=== PATIENT | male | born 1960 ===

== ENCOUNTER 2023-09-11 02:23 | Outpatient (CLI) | payer BC, SELFPAY ==
[2023-09-11 15:00] LABS: HCT 47.6 % (40.0-50.0); HGB 15.5 g/dL (13.5-17.5); MCH 28.1 pg (27.0-33.0); MCHC 32.6 % (32.0-36.0); MCV 86 fL (80-95); MPV 9.6 fL (8.0-11.0); Platelet Count 278 10^3/uL (130-400); RBC 5.51 10^6/uL (4.36-5.78); RDW 15.8 % (11.8-14.1); RDW-SD 50.2 fL; WBC 10.79 10^3/uL (4.4-10.8)
[2023-09-11 15:44] LABS: Anion Gap 8.2 mmol/L (3-11); BUN 31 mg/dL (7-18); CO2 25.8 mmol/L (21.0-32.0); CREATININE 1.4 mg/dL (0.70-1.30); Calcium 9.4 mg/dL (8.5-10.1); Chloride 103 mmol/L (98-107); Estimated GFR 55.78 (mL/min/1.73m2); Glucose 112 mg/dL (74-106); Potassium 4.5 mmol/L (3.5-5.1); Sodium 137 mmol/L (136-145)
== END 2023-09-11 02:24 | disposition home or self-care (01) ==
LOC: LBO 02:23
PROVIDERS: PCP Nurse Practitioner Family; Visit Provider Student in an Organized Health Care Education/Training Program
DX: M16.12 Unilateral primary osteoarthritis, left hip (principal); Z01.818 Encounter for other preprocedural examination
CPT/HCPCS: 36415; 80048; 85027

== ENCOUNTER 2023-09-11 14:48 | Outpatient (CLI) | payer BC, SELFPAY ==
--- NOTE | 2023-09-11 13:30 | DI.RAD_ITS ---
Exam(s) XR PELVIS AP EXAM: XR PELVIS AP CLINICAL HISTORY: PRE OP L FRANCISCA. TECHNIQUE: 2D digital imaging was performed. Single AP view. COMPARISON: CR XR HIP LEFT 2-3 VIEWS, OPTIONAL PELVIS from 07/12/2022 MR MR PELVIS WO CONTRAST from 09/30/2022 NM NM BONE WHOLE BODY from 10/18/2022 FL GUIDED INJECT/ASPIR LEFT HIP from 10/25/2022 FINDINGS: BONES: No acute fracture is present. There is faint sclerosis surrounding area of lucency in the lef t femoral head. There is no evidence of subchondral collapse. JOINTS: No dislocation present. No joint space narrowing is present. Minimal periarticular spurring. SOFT TISSUE: Calcifications. IMPRESSION: Stable of appearance of the left femoral head with small area of presumed avascular necrosis. No col lapse of the femoral head. DATA REPOSITORY: RADIATION DOSE DELIVERED:
== END 2023-09-11 14:49 | disposition home or self-care (01) ==
LOC: DIORS 14:48
PROVIDERS: PCP Nurse Practitioner Family; Visit Provider Physician Assistant
DX: M87.052 Idiopathic aseptic necrosis of left femur (principal)
CPT/HCPCS: 72170

== ENCOUNTER 2023-09-24 05:53 | Day surgery (SDC) | payer BC, SELFPAY ==
--- NOTE | 2023-09-23 18:48 | W.ANESPRE ---
General Info Date of Service Date Performed: 09/24/23 Height: 6 ft Weight: 110.223 kg Body Mass Index (BMI): 32.9 Surgical Procedure: Operation Date: 09/24/23 07:50 Proposed Procedure Side Surgeon p Hip Total Hip Anterior, ACTIS Left Ronald Morel MD Meds Allergies and Home Medications Allergies Allergy/AdvReac Type Severity Reaction Status Date / Time levofloxacin Allergy Mild rash Verified 09/24/23 06:05 Home Medication ?Medication ?Instructions ?Recorded acetaminophen 325 mg tablet 650 mg PO Q6H PRN 05/28/23 apixaban 5 mg tablet 5 mg PO BID 05/28/23 atorvastatin 10 mg tablet 10 mg PO QHS 05/28/23 cholecalciferol (vitamin D3) 10 10 mcg PO DAILY 05/28/23 mcg (400 unit) capsule empagliflozin 10 mg tablet 10 mg PO DAILY 05/28/23 glipizide 10 mg tablet 10 mg PO DAILY 05/28/23 insulin degludec 200 unit/mL (3 125 unit subcut DAILY 05/28/23 mL) subcutaneous pen (Tresiba FlexTouch U-200 insulin) lisinopril 20 mg tablet 20 mg PO DAILY 05/28/23 metformin 500 mg tablet 1,000 mg PO BID 05/28/23 semaglutide 1 mg/dose (4 mg/3 mL) 1 mg subcut QWEEK 05/28/23 subcutaneous pen injector sildenafil 100 mg tablet 100 mg PO DAILY PRN 05/28/23 omega 6-kyb-pin-fish oil 60 mg-90 1 cap PO DAILY 07/31/23 mg-500 mg capsule (Fish Oil) Current Visit Medications: Current Medications Generic Name Dose Route Start Last Admin Trade Name Freq PRN Reason Stop Dose Admin Acetaminophen 1,000 mg 09/24/23 06:00 Acetaminophen 500 Mg Tab PO 09/24/23 23:59 PREOP DANIEL Celecoxib 400 mg 09/24/23 06:00 Celecoxib 200 Mg Cap PO 09/24/23 23:59 PREOP DANIEL Gabapentin 300 mg 09/24/23 06:00 Gabapentin 300 Mg Cap PO 09/24/23 23:59 PREOP DANIEL Ringer's Solution 1,000 mls @ 80 mls/hr 09/24/23 06:00 IV 09/24/23 23:59 INFUSION DANIEL Cefazolin Sodium/Dextrose 2 gm in 50 mls @ 100 mls/hr 09/24/23 06:00 Ancef Duplex IVPB 09/24/23 23:59 PREOP DANIEL Tranexamic Acid/Sodium Chloride 1,000 mg in 100 mls @ 600 mls/hr 09/24/23 06:00 IVPB 09/24/23 23:59 PREOP DANIEL IV Miscellaneous Supplies 1 each 09/24/23 06:00 Iv Access IV 09/24/23 23:59 DIRECTED DANIEL Sodium Chloride 0 ml 09/24/23 06:00 Normal Saline Flush 10 Ml Syr IV 09/24/23 23:59 PRN PRN Sodium Chloride 0 ml 09/24/23 06:00 Normal Saline 10 Ml Vial IJ 09/24/23 23:59 DIRECTED PRN Sterile Water 0 ml 09/24/23 06:00 Water,Injection,Sterile 10 Ml Vial IJ 09/24/23 23:59 DIRECTED PRN PFSH Active Problems Active Problems: Problem Status Onset Code Avascular necrosis of bone of left hip Acute M87.052 Venous collateral circulation Acute I99.8 Type 2 diabetes mellitus Acute E11.9 Stem cells transplant status Acute Z94.84 Stage 2 chronic kidney disease Acute N18.2 Solitary pulmonary nodule Acute R91.1 PAF (paroxysmal atrial fibrillation) Acute I48.0 Myelodysplastic syndrome Acute D46.9 Iron overload due to repeated red blood cell transfusions Acute E83.111 Hypertension Chronic I10 Diabetic retinopathy Acute E11.319 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 S/P TAVR (transcatheter aortic valve replacement) 12/2021 Tobacco Smoking/Tobacco Use Status: Former Tobacco Use Alcohol Alcohol Intake: current Alcohol intake frequency: holidays/special occasions only Substance Use Substance use: Rarely Substance use type: marijuana Vital Signs and Lab Results Vital Signs Most Recent Vital Signs in EMR: Temp Pulse Resp BP Pulse Ox 36.4 C L 62 16 94/57 L 98 09/24/23 06:11 09/24/23 06:11 09/24/23 06:11 09/24/23 06:11 09/24/23 06:11 Lab Results Blood Type / Crossmatch: No Data to Display Complete Blood Count: White Blood Count 10.79 10^3/uL (4.4-10.8) 09/11/23 14:47 Red Blood Count 5.51 10^6/uL (4.36-5.78) 09/11/23 14:47 Hemoglobin 15.5 g/dL (13.5-17.5) 09/11/23 14:47 Hematocrit 47.6 % (40.0-50.0) 09/11/23 14:47 Platelet Count 278 10^3/uL (130-400) 09/11/23 14:47 Complete Metabolic Panel: Sodium 137 mmol/L (136-145) 09/11/23 14:47 Potassium 4.5 mmol/L (3.5-5.1) 09/11/23 14:47 Chloride 103 mmol/L (98-107) 09/11/23 14:47 Carbon Dioxide 25.8 mmol/L (21.0-32.0) 09/11/23 14:47 BUN 31 mg/dL (7-18) H 09/11/23 14:47 Creatinine 1.4 mg/dL (0.70-1.30) H 09/11/23 14:47 Est GFR (CKD-EPI 2020) 55.78 (mL/min/1.73m2) 09/11/23 14:47 Calcium 9.4 mg/dL (8.5-10.1) 09/11/23 14:47 Glucose 112 mg/dL (74-106) H 09/11/23 14:47 Liver Function Panel: No Data to Display Coagulation Panel: No Data to Display Cardiac Panel: No Data to Display Arterial Blood Gas: No Data to Display Venous Blood Gas: No Data to Display Pancreas Panel: No Data to Display Thyroid Panel: No Data to Display Infectious Disease: No Data to Display Blood Cultures: No Data to Display Toxicology Panel: No Data to Display Anesthesia Assessment and Plan Anesthesia History Personal History: No History of Anesthesia Complications Family History: No Family History of Anesthesia Complications Exercise Tolerance Exercise Tolerance: Metabolic Equivalents>4 Cardiac & Pulmonary Exam Cardiac Exam: Normal S1/S2 Heart Sounds Pulmonary Exam: Clear Bilateral Breath Sounds Implantable Cardiac Device Does patient have a Pacemaker or an ICD?: No Airway Exam Known Difficult Airway: No Mallampati Class: 3 Mouth Opening: Narrow (< 3cm) Thyromental Distance: Less than 3 cm Neck Range of Motion: Limited ROM Neck Circumference: Thick Teeth Condition: Normal Dentition ASA Classification ASA Score: ASA 3 Emergency Case?: No NPO Status NPO Status: NPO Clears >2 hours, Solids >8 hours Anesthesia Plan Resuscitation Status: Full Code Anesthesia Technique: Spinal Anesthesia Airway Planned: Natural Airway Monitors Used: Standard Monitors Preoperative Comments:: 63 yo male for FRANCISCA due to avascular necrosis. Sig PMHx: s/p TAVR 2021, HTN (lisinopril), pAifb (eliquis), GERD, CKDII, DM2 (glipizide, semaglutide, empagliflozin, degludec. Last A1c 6.9%), myodysplastic syndrome (stem cell transplant, azacitidine), occ EtOH/cannabis PFT: normal. EKG NSR, LBBB. ECHO: LVEF 55%, ? diastolic dysfunction, RvFxn normal. TAVR gradient 20 mmhg, valve area 1.5 cm2. trace TR/PA/MR. 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
[2023-09-24] VITALS (10 sets, daily range): BP systolic 94–137; BP diastolic 46–73; PULSE 53–69; RESP 16–19; TEMP 36.2–36.7; O2SAT 96–98; BMI 32.9
[2023-09-24] MEDS: Acetaminophen 500 MG TAB 1000 MG PO (06:37)
[2023-09-24] MEDS: Celecoxib 200 MG CAP 400 MG PO (06:37)
[2023-09-24] MEDS: Lactated Ringers 1,000 ML 80 ML IV (06:38)
--- NOTE | 2023-09-24 07:17 | PDOC.DSDIS_ITS ---
Date of service: 09/24/23 Time of Service: 07:17 Discharge Plan Disposition Patient Disposition: Home Condition: Good Discharge Details Reason For Visit: L THR Attending Provider: Ronald Morel Primary Care Provider: Nedra Bess Home Meds and New Rx's Prescriptions: New acetaminophen 500 mg tablet 1,000 mg PO TID Qty: 90 3RF celecoxib 200 mg capsule 200 mg PO BID Qty: 60 0RF pantoprazole 40 mg tablet,delayed release (DR/EC) 40 mg PO DAILY Qty: 30 0RF oxycodone 5 mg tablet 5 mg PO Q4H MDD 6 tabs PRN (Reason: pain) Qty: 20 0RF Continued omega 7-cyz-hcf-fish oil [Fish Oil] 60-90-500 mg capsule 1 cap PO DAILY apixaban 5 mg tablet 5 mg PO BID atorvastatin 10 mg tablet 10 mg PO QHS cholecalciferol (vitamin D3) 10 mcg (400 unit) capsule 10 mcg PO DAILY empagliflozin 10 mg tablet 10 mg PO DAILY glipizide 10 mg tablet 10 mg PO DAILY insulin degludec [Tresiba FlexTouch U-200] 200 unit/mL (3 mL) insulin pen 125 unit subcut DAILY lisinopril 20 mg tablet 20 mg PO DAILY metformin 500 mg tablet 1,000 mg PO BID semaglutide 1 mg/dose (4 mg/3 mL) pen injector 1 mg subcut QWEEK sildenafil 100 mg tablet 100 mg PO DAILY PRN Rx Instructions: administer 30 minutes to 4 hours before activity Discontinued acetaminophen 325 mg tablet 650 mg PO Q6H PRN Discharge Instructions Additional Instructions: Total Hip Discharge Instructions Activity: The most important activity is to walk. You should try to take short walks a few times a day. You have no restrictions on movement or positioning, but do not try to force what you do. You will find some stiffness and weakness with hip flexion (lifting your knee). Do not try to strengthen this too early, continue to practice walking and stairs and this will come. - Outpatient physical therapy can be helpful to help return you to a normal gait and improve your flexibility and strength. This can start around 2 weeks. For some patients, it?s not necessary. Usually this is determined at the time of discharge or at the first post-operative visit. - You should wear the KINGSLEY hose on both legs for 2 weeks. Dressing: Keep the surgical dressing in place for at least one week. After the first week it may be removed and replace with light gauze and tape or nothing. It may get wet after 3 days but avoid soaking the dressing. If it gets wet, just lightly pat dry. It is important to always keep some gauze between skin folds, especially when you are sitting. Spend some time with the wound exposed when you are lying flat as the incision does wrinkle onto itself. Medications: - You should take Tylenol and an anti-inflammatory Celebrex as your primary pain control medications. If the Celebrex is too expensive or not covered, please call the office for another alternative (Advil/Ibuprofen or Naproxen/Aleve). - You have been prescribed a stronger pain medication Oxycodone for breakthrough pain, take as needed as prescribed. - You have also been prescribed a stomach acid reduction agent Pantoprozole to help reduce stomach acid and reflux. - You will be taking your apixaban for DVT prevention unless instructed otherwise. - If you have constipation you should take Colace or Miralax (both yxcq-xpl-[id number]). It takes most people 3-4 days to have a bowel movement. Follow-up: 2 weeks If you have any acute concerns or questions, please do not hesitate to contact the office at [phone]. You may contact Dr. Mroel with any questions after hours through the hospital at [phone] or on his cell phone at [phone]. Referrals: Ronald Morel MD [ [facility] STAFF PHYSICIAN] - Equipment/Supplies: Walker Activity:: Activity as Tolerated Remove Dressings/Wound Care:: 72 hours Shower/Bathe:: 72 hours Diet:: As Tolerated Discharge Orders Discharge Orders: Discharge Order (Routine); Ordered 09/24/23 Ordered By: Joss Rocha DS: Diagnosis Discharge Diagnosis (1) Avascular necrosis of bone of left hip: Status: Acute
[2023-09-24] MEDS: ceFAZolin 2 GM/50 ML BAG IVPB (07:42)
[2023-09-24] MEDS: TRANEXAMIC ACID/SOD. CHL. 1,000 MG/100 ML BAG 600 MG IVPB (07:49)
--- NOTE | 2023-09-24 08:46 | DI.RAD_ITS ---
Exam(s) XR HIP LT IN OR EXAM: XR HIP LT IN OR CLINICAL HISTORY: Avascular necrosis of bone of left hip. TECHNIQUE: 2D and realtime digital imaging was performed. COMPARISON: CR XR PELVIS AP from 09/11/2023 FINDINGS: A hard copy image shows placement of a left hip prosthesis. The alignment appears satisfactory. Please see procedure note for details. Fluoro time: 25.8seconds RADIATION DOSE DELIVERED: migue Mclaughlin=4.02 mGy
--- NOTE | 2023-09-24 08:58 | ROE_ITS ---
Date of service: 09/24/23 Time of Service: 08:58 Operative Note Operative Note DATE OF PROCEDURE: 09/24/23 PRE-OP DIAGNOSIS: Left Hip Osteoarthritis POST-OP DIAGNOSIS: same PROCEDURE: Left Anterior Total Hip Arthroplasty with Intraoperative Navigation SURGEON: Ronald Morel DEPARTMENT COORDINATOR: Joss Rocha ANESTHESIA TYPE: Spinal Refer to Anesthesia Record ESTIMATED BLOOD LOSS: 150 PATHOLOGY: none sent TOURNIQUET TIME: 0 COMPLICATIONS: None Patient was transported to: PACU Patient's condition: stable Implants: 1. Depuy Brooks Acetabular Component, 54mm 2. Depuy Acetabular Liner, [id number] 3. Depuy Actis Standard Collared Femoral Stem, Size 8 4. Depuy Altrx Ceramic Femoral Head, Size 36+8.5mm Indications: I have seen Gavin in clinic for symptoms of hip arthritis, confirmed with radiographic findings. He has exhausted nonoperative methods and was having significant limitations in daily function and desired better function and less pain. I discussed the technical details of a hip replacement. I explained the risks of the procedure to include, but not limited to, bleeding, infection, pain, stiffness, fracture, damage to nerves and vessels, damage to muscles and tendons, loosening, instability, leg length inequality, need for repeat pr ocedure, blood clot and cardiopulmonary demise. Despite these risks, Gavin elected to proceed. Findings: There was significant signs of arthritis throughout the hip. Procedure Description: Gavin was greeted in the preoperative holding area where the correct side was identified and marked. The consent was reviewed with the patient and signed. The history and physical was updated. All questions were answered. He was taken back to the operating room. A spinal anesthestic was then administ suzan. The feet were wrapped with cast padding and Coban and then placed into the boot liners and then into the boots. Care was taken to protect the skin and make sure the heels were fully down and the boots were stable. The patient was then positioned onto the HANA table. Both legs were held in a neutral position. SCDs were applied. The patient was then slid down onto a peroneal post. Prophylactic antibiotics in the form of Cefazolin were administered. 1g of Tranxemic Acid was given intravenously within 30 minutes of incision. The left leg was then prepped with Chloraprep and draped in a standard fashion. A second prep with Chloraprep was performed prior to placement of a shower-curtain type drape with Iodine impregnated skin protection. A timeout to confirm correct identity, side and site, procedure, allergies, anesthesia, and medical concerns was performed. An obliquely oriented incision was made starting lateral to the ASIS and running distal over the Tensor Fascia Saadia (TFL) muscle belly toward the fibular head, approximately 10cm. The skin and soft tissue was dissected sharply, through Allison?s fascia, and to the fascia of the TFL. With the fascia and superior border of the IT band identified, the fascia was incised with a new knife just above any perforators from the IT band. The TFL muscle belly was bluntly dissected away from the fascia and moved laterally. The fat between TFL and rectus was identified to ensure the dissection was not within the TFL. Blunt dissection created space between abductors and the capsule and retractor was placed over the lateral femoral neck. The fibers of the rectus femoris tendon were identified and these were freed from the anterior capsule. A second cobra retractor was placed around the medial femoral neck. The TFL was further retracted laterally to show the deep fascia. Careful dissection through this layer identified three main crossing vessels of the lateral femoral circumflex. These were cauterized in multiple locations and then cut without any noticeable bleeding. The TFL was further released bluntly from the deep fascia to expose anterior hip capsule and fat The Asaf orthopaedic retractor was then placed beneath the TFL and against sartorius and medial soft tissues to protect and retract the soft tissues. A T-capsulotomy was then performed starting at the superior lateral acetabulum and moving distally to the intertrochanteric ridge. These capsular flaps were tagged with a No. 1 Ethibond and elevated from within. The capsular flaps were released to the shoulder of the lateral neck and to the lesser trochanter to give excellent visualization of the proximal femur. A neck osteotomy was performed using an oscillating saw based on preoperative templates. This cut started in the shoulder and of the lateral neck and exited medially. The saw was at all times directed medially to avoid injury to the greater trochanter. Gross traction was applied to the leg and the osteotomy opened. The femoral head was removed with a corkscrew, making sure to protect the TFL on its exit. Traction was released after head removal. This was measured on the back table to determine the starting reamer size. Portions of the rectus obscuring visualization were minimally elevated off the superior acetabulum. An anterior retractor was placed over the anterior wall between capsule and labrum and attached to the Gripper retraction system. The femur was rotated to 90 degrees and medial capsule was fully released until the lesser trochanter was palpable and visible; the femur was returned to 30 degrees. A posterior retractor was placed similarly between capsule and labrum. This provided excellent visualization. The contents of the cotyloid fossa were removed with electrocautery and the labrum was removed with a knife. Acetabular reaming began with a 50mm reamer. This first reaming was directed anterior to posterior and medial to get down to the true floor. This was insp ected and reamed until the true floor was reached. The anterior retractor was then released and entry and exit was provided by traction on the capsular flaps. I then reamed sequentially up to a 54mm reamer where good fit was obtained. The larger reamers were oriented based on anatomical reference of the anterior and lateral fried to ensure proper abduction and anteversion. Positioning and size was confirmed with the fluoroscopy. A 54mm Depuy Brooks acetabular component was selected. The acetabulum was reamed around the periphery with the selected acetabular size to prevent a rim fit. The deep tissues were irrigated. The acetabular component was then impacted in a position of about 40-45 degrees of abduction and 15-20 degrees of anteversion, using the patient?s anatomy as the ultimate landmark. Fluoroscopy was used to confirm this. There was excellent group managing director of the acetabular component and the inserting handle was removed. The acetabular liner, Depuy [id number] polyethylene liner, was inserted and lined up with the tines of the acetabular component. There was no soft tissue interposition. The liner was then impacted into position and confirmed to be well-seated. A portion of the logan-articular cocktail was then injected around the acetabulum into the capsule and periosteum. This cocktail consisted of 123mg of Ropivacaine, 0.25mg of Epinephrine, 0.04mg of Clonidine, and 15mg of Ketorolac, diluted to 50cc. The leg was rotated to 120 degrees. Any remaining medial capsule was released until the lesser trochanter was easily palpable. A retractor was placed media lly. The lateral capsule was further released into the shoulder to allow access to the greater trochanter. A Montalvo retractor was placed over the greater trochanter which allowed the trochanter to flip in front of the capsule for excellent exposure. The leg was brought down into maximal extension and 20 degrees of adduction while ensuring there was no impingement on the acetabulum. Any remnant capsule within the trochanter was released. Piriformis and obturator externis were identified and protected. There was excellent access to the proximal femur. The lateral neck remnant was removed with a rongeur. A blunt canal probe was used to identify the canal and trajectory for later broaching. A box osteotome initiated the broach course. A small curved rasp and a curved curette were used to work laterally. Broaching then began with a starter Actis broach. This was inserted manually around the trochanter and into the canal before mallet blows. The broach was seated to a few millimeters below the cut level based on the neck cut and the preoperative template. Sequential broaching was continued with the [email or web address] pneumatic broaching device until a tight fit was obtained with good rotational control of the femur. A trial standard neck was inserted along with a +5 trial head. The leg was brought out of extension and adduction and then reduced with traction and internal rotation. The leg was stable anteriorly in a position of 30 degrees of extension and 90 degrees of external rotation. Fluoroscopy was used to ensure there was no fracture and the stem was seated well. Leg lengths were checked with an AP pelvis and pelvic reference points. tenKsolar navigation system was used to confirm appropriate positioning and leg length and offset. An increase to a +8.5mm head would correct the offset and leg length. Once content with the desired offset and leg lengths, the leg was brought back into extension, external rotation and adduction. The periosteum and surrounding tissue was injected with remaining portion of the logan-articular cocktail. The proximal femur was irrigated as well as the deep tissues. The The Donut Hut[employer] Actis standard collared stem, size 8, was then manually inserted into the proximal femur making sure to control rotation. It was then malleted into position with light blows, giving breaks to allow bone expansion and decrease risk of fracture. The selected Depuy Altrx Ceramic Head, size 36+8.5mm, was then placed onto the clean and dry trunnion and secured with impaction onto the tapered fit. The leg was brought back out of extension and adduction and reduced with traction and internal rotation. Stability was confirmed with no shuck at 90 degrees of external rotation and 30 degrees of extension. No impingement through range of motion arc. Final x-ray images were obtained with fluoroscopy to confirm adequate positioning and no intraoperative fracture. The deep tissues were thoroughly irrigated with Surgiphor, betadine solution. This was allowed to sit in the wound for 3 minutes before being thoroughly irrigated out with normal saline. The capsule was then reapproximated with the previously placed Ethibond sutures. The TFL fascia was finally closed with a No. 2 Stratafix, barbed suture. Deep tissues were then reapproximated with 0 Vicryl and a running 2-0 Vicryl. The skin was closed with a running 4-0 Monocryl in a subcuticular fashion. This was reinforced with skin glue. A Mepilex silver dressing was applied. At the end of the case, all counts were correct. Gavin was transferred to the hospital bed without difficulty and suffering no apparent complication. Gavin has a good prognosis. Physical therapy will start today and without restrictions, weight-bearing as tolerated. His home dose of Apixaban 5mg BID will be used for DVT prophylaxis.
[2023-09-24] MEDS: fentaNYL 100 MCG/2 ML VIAL IVP ×2 (09:22→09:30)
--- NOTE | 2023-09-24 09:25 | W.ANESPOSTOP ---
Postoperative Evaluation Date, Time and Location Date Performed: 09/24/23 Time Performed: 09:39 Patient Location: PACU Vital Signs Most Recent Imported Vital Signs: Most Recent Vital Signs Temp Pulse Resp BP Pulse Ox 36.4 C L 62 16 94/57 L 98 09/24/23 06:11 09/24/23 06:11 09/24/23 06:11 09/24/23 06:11 09/24/23 06:11 Assessment Mental Status: Awake (Alert & Oriented to Patient Baseline) Airway and Respiratory Function: Patent airway with normal (patient baseline) respiratory exam Cardiovascular Function: Hemodynamically Stable Hydration Status: Adequately Hydrated Nausea & Vomiting: No Nausea or Vomiting Pain: Pain is tolerable per patient Peripheral Nerve Block: Patient did not receive a nerve block
[2023-09-24] MEDS: oxyCODONE 5 MG TAB PO (10:32)
--- NOTE | 2023-09-24 11:03 | PT.INIE ---
PT Notes Visit Reasons: L THR Physical Therapy Day Surgery Initial Evaluation Date: 09/24/23 Referring Doctor: Dr. Morel PT Orders: PT CONSULT: s/p L FRANCISCA Precautions: WBAT Patient Profile/Admitting Diagnosis: PT orders received for evaluation of patient with AVN left hip, now s/p FRANCISCA post op day #0. Social History/Home Situation: Resides in private home with 1 TERESITA. is present and supportive during PT session. Equipment Owned/DME: [facility] Subjective: Gavin states that he has had chronic left hip and LBP. He's been up out of bed and to chair with nursing, without much difficulty. Is anxious to return home. Objective: General Observation: Resting in chair with legs elevated. IV in RUE. Mental Status: A&Ox3. Pleasant and cooperative throughout. Pain: minimal ROM: Right Upper Extremity: WFL Left Upper Extremity: WFL Right Lower Extremity: WFL. Functionally demonstrates 100* hip flexion, full knee ROM. Left Lower Extremity: Functionally demonstrates 90* hip flexion, full functional knee ROM. Strength: Right Upper Extremity: WFL Left Upper Extremity: WFL Right Lower Extremity: 3/5 or greater for hip flexion, knee extension and ankle DF Left Lower Extremity: 3/5 or greater for knee extension and ankle DF Sensation: intact distally Bed Mobility/Transfers: Supine to sit : independent per report Sit to stand : independent Stand to sit : independent Bed to chair : independent with FWW ADLs: Able to dress independently, with cues for dressing lower body Gait: Ambulates 100'x2 with FWW, limited reliance on walker, step through pattern, supervision only. Stairs: Manages therapeutic stairs, 6x2, 4x3 with bilat rails, step to pattern, minimal cues Balance: Static Sitting: normal Dynamic Sitting: normal Static Standing: good Dynamic Standing: fair Informed Consent/Education: Patient instructed in purpose of PT consult. Packet containing [] exercise protocol has been given to patient. Education and training on initial set of exercises that can be done at home have been completed with patient. Treatment: Evaluation as above Instruction in HEP, consisting of ankle pumps, quad sets, glute sets, heel slides. Assessment: Patient presents with clinical signs and symptoms consistent with current/admitting diagnoses that have resulted to mobility limitations, gait instability, generalized weakness, and impairment of motor control as demonstrated by the following impairment level findings: 1. Decreased strength to left LE major muscle groups 2. Impaired dynamic balance 3. Limitation of joint range of motion in left hip Impairments are contributing to the following functional limitations: 1. Inability to safely ambulate without assistive device 2. Increase completion time for mobility ADL performance 3. Increased fall risk Patient is assessed as low complexity based on the following: History: 63-year-old male with impairment level findings, functional limitations, and past medical history as indicated above Examination: Demonstrable impairment in strength, balance, and mobility level with underlying impairments and functional limitations as documented above Presentation: stable Decision Making: low Goals: N/A. PT evaluation only for functional mobility training using recommended AD and for HEP instruction. Plan of Care/Treatment Plan: N/A. PT evaluation only for functional mobility training using recommended AD and for HEP instruction. DISCHARGE RECOMMENDATIONS: Home with no equipment needs TREATMENT CODE/TIME: [id number] ([id number]) Thank you for the opportunity to participate in the care of this patient. Mariah Tucker, PT, DPT [facility] Please sign an return this page within 30 days if you agree with the above POC. Thank you! Physician Signature Date [facility] All Active Problems (Updated 09/24/23 @ 06:47 by Bethany Rocha) Avascular necrosis of bone of left hip (Acute) Venous collateral circulation (Acute) Type 2 diabetes mellitus (Acute) Stem cells transplant status (Acute) Stage 2 chronic kidney disease (Acute) Solitary pulmonary nodule (Acute) PAF (paroxysmal atrial fibrillation) (Acute) Myelodysplastic syndrome (Acute) Iron overload due to repeated red blood cell transfusions (Acute) Hypertension (Chronic) Diabetic retinopathy (Acute) Bone marrow transplant status (Acute) Medical History Gout History of tobacco use Hyperhidrosis Erectile dysfunction Surgical History (Updated 09/24/23 @ 06:47 by Bethany Rocha) S/P rotator cuff repair Left S/P left knee arthroscopy History of carpal tunnel release [place]. 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
== END 2023-09-24 11:22 | disposition home or self-care (01) ==
PROVIDERS: PCP Nurse Practitioner Family; Visit Provider Student in an Organized Health Care Education/Training Program
PROC: (CPT 27130; principal; 2023-09-24 07:30)
DX: M87.052 Idiopathic aseptic necrosis of left femur (principal); E11.22 Type 2 diabetes mellitus with diabetic chronic kidney disease; I12.9 Hypertensive chronic kidney disease with stage 1 through stage 4 chronic kidney disease, or unspecified chronic kidney disease; N18.2 Chronic kidney disease, stage 2 (mild); Z94.84 Stem cells transplant status
CPT/HCPCS: 27130; 20985; 97161; 73501; C1776; J0690; J1100; J2250; J2401; J2405; J2704; J3010

== ENCOUNTER 2023-10-09 16:02 | Outpatient (CLI) | payer BC, SELFPAY ==
--- NOTE | 2023-10-09 11:39 | DI.RAD_ITS ---
Exam(s) XR HIP LT COMPLETE AP PELVIS EXAM: XR HIP LT COMPLETE AP PELVIS CLINICAL HISTORY: 1ST POST OP L FRANCISCA. TECHNIQUE: 2D digital imaging was performed. Three images were obtained. AP pelvis and left hip vie ws were obtained. COMPARISON: CR XR PELVIS AP from 09/11/2023 XA XR HIP LT IN OR from 09/24/2023 FINDINGS: BONES: There are stable post operative changes of a left total hip arthroplasty present. No fracture or dislocation. JOINTS: The orthopedic hardware is in good position. No evidence of hardware loosening. SOFT TISSUE: Vascular calcifications are present. IMPRESSION: Stable left total hip arthroplasty. DATA REPOSITORY: RADIATION DOSE DELIVERED:
== END 2023-10-09 16:03 | disposition home or self-care (01) ==
LOC: DIORS 16:02
PROVIDERS: PCP Nurse Practitioner Family; Visit Provider Student in an Organized Health Care Education/Training Program
DX: Z96.642 Presence of left artificial hip joint (principal); Z47.1 Aftercare following joint replacement surgery
CPT/HCPCS: 73502

== ENCOUNTER 2024-10-01 08:27 | Outpatient (CLI) | payer MEDICARE, SELFPAY ==
--- NOTE | 2024-10-01 08:00 | DI.RAD_ITS ---
Exam(s) XR HIP LT AP LAT ONLY EXAM: XR HIP LT AP LAT ONLY CLINICAL HISTORY: ANNUAL F/U L FRANCISCA. TECHNIQUE: 2D digital imaging was performed. COMPARISON: CR XR HIP LT COMPLETE AP PELVIS from 10/09/2023 FINDINGS: Two views There is stable position alignment of the components of the left hip prosthesis. No fracture or loosening evident. No radiographic evidence of osteomyelitis IMPRESSION: Stable satisfactory appearance of left hip prosthesis. DATA REPOSITORY: RADIATION DOSE DELIVERED:
== END 2024-10-01 08:28 | disposition home or self-care (01) ==
LOC: DIORS 08:27
PROVIDERS: PCP Nurse Practitioner Family; Referring Provider Nurse Practitioner Family; Visit Provider Physician Assistant
DX: Z47.1 Aftercare following joint replacement surgery (principal); Z96.642 Presence of left artificial hip joint
CPT/HCPCS: 99212; 73502